=== PATIENT | female | born 1995 | race African-American/Black ===

== ENCOUNTER 2017-10-31 23:27 | Emergency (ER) | payer SELFPAY ==
[2017-11-01] MEDS ORDERED: Adacel (T-DAP) 0.5 ML VIAL ONE (00:17)
== END 2017-11-01 00:34 | disposition home or self-care (01) ==
LOC: ERS 23:27
DX: S01.412A Laceration without foreign body of left cheek and temporomandibular area, initial encounter (principal); F17.210 Nicotine dependence, cigarettes, uncomplicated; W01.198A Fall on same level from slipping, tripping and stumbling with subsequent striking against other object, initial encounter
CPT/HCPCS: 12011; 90471; 90715

== ENCOUNTER 2017-11-09 19:05 | Emergency (ER) | payer SELFPAY | END 2017-11-09 19:48 | disposition home or self-care (01) | LOC: ERS 19:05 | DX: S01.412D Laceration without foreign body of left cheek and temporomandibular area, subsequent encounter (principal); F17.210 Nicotine dependence, cigarettes, uncomplicated; Z71.6 Tobacco abuse counseling; W01.198D Fall on same level from slipping, tripping and stumbling with subsequent striking against other object, subsequent encounter | CPT/HCPCS: 99406 ==

== ENCOUNTER 2017-12-18 07:29 | Emergency (ER) | payer SELFPAY ==
[2017-12-18] MEDS ORDERED: Ibuprofen 800 MG TAB ONE (07:59)
--- NOTE | 2017-12-18 09:00 | RAD ---
TWO VIEWS RIGHT FOREARM: HISTORY: Pain. FINDINGS: AP and lateral views right forearm are obtained. Two views right forearm demonstrate no evidence of right forearm fractures, subluxations, or bony les ions. IMPRESSION: Normal 2 views right forearm. POS: [facility]
== END 2017-12-18 08:54 | disposition home or self-care (01) ==
LOC: ERS 07:29
DX: S50.11XA Contusion of right forearm, initial encounter (principal); K08.89 Other specified disorders of teeth and supporting structures; K00.6 Disturbances in tooth eruption; F17.210 Nicotine dependence, cigarettes, uncomplicated; W23.0XXA Caught, crushed, jammed, or pinched between moving objects, initial encounter

== ENCOUNTER 2018-11-03 22:26 | Emergency (ER) | payer SELFPAY ==
--- NOTE | 2018-11-03 23:03 | RAD ---
AP VIEW CHEST: 11/03/18 HISTORY: Chest pain. AP view chest obtained on 11/03/18. AP view chest demonstrates the lungs to be well aerated. No evidence of active intrathoracic disease seen. No evidence of effusions, pneumonia, or pneumothorax seen. IMPRESSION: Unremarkable AP view chest. POS: [facility]
[2018-11-03 23:10] LABS: Bilirubin Negative (Negative); Blood, Urine Negative (Negative); Clarity Clear (Clear); Glucose, Urine (Dipstick) Negative (Negative); Leukocyte Negative (Negative); Nitrite Negative (Negative); Protein, Urine (Dipstick) Negative (Neg-Trace); Urobilinogen 0.2 mg/dL (0.2-1.0)
[2018-11-03 23:14] LABS: Pregnancy Test - Urine (BHCG) Negative (Negative); Pregu Control Background? CLEAR/WHITE (CLR/WHITE); Pregu Control Bar Appear? YES (CONTROL BAR)
[2018-11-03 23:48] LABS: #Basophils 0.1 thou/uL (0.0-0.2); #Eosinphils 0.3 thou/uL (0.0-0.7); #Lymphocytes 2.3 thou/uL (1.20-3.40); #Monocytes 0.4 thou/uL (0.11-0.59); #Neutrophils 3.7 thou/uL (1.40-6.50); %Basophils 2.2 % (0.0-1.0); %Eosinophils 3.8 % (0.0-10.0); %Lymphocytes 34.3 % (21.0-51.0); %Monocytes 5.9 % (0.0-10.0); Hemoglobin 11.7 g/dL (12.0-16.0); Mean Corpuscular Hemoglobin 27.8 pg (27.0-31.0); Mean Corpuscular Volume 86.8 fL (78.0-98.0); Mean Platelet Volume 9.2 fL (7.4-10.4); Platelet Count 244 thou/uL (130-400); Red Blood Cell (RBC) Count 4.22 mill/uL (4.20-5.40); White Blood Cell (WBC) Count 6.8 thou/uL (4.8-10.8)
[2018-11-03 23:56] LABS: ALT (SGPT) 20 U/L (8-55); AST (SGOT) 27 U/L (5-34); Albumin 4.4 g/dL (3.5-5.0); Alkaline Phosphatase 86 U/L (40-150); Anion Gap 14 mmol/L (10-20); BUN (Urea Nitrogen) 13 mg/dL (7.0-18.7); Bilirubin, Total 0.2 mg/dL (0.2-1.2); Calc. Creatinine Clearance 0 mL/min (70-130); Calcium 9.8 mg/dL (7.8-10.44); Carbon Dioxide 23 mmol/L (22-29); Chloride 108 mmol/L (98-107); Estimated GFR-MDRD 87; Globulin 4.1 g/dL (2.4-3.5); Glucose 87 mg/dL (70-105); Potassium 4.2 mmol/L (3.5-5.1); Protein, Total 8.5 g/dL (6.0-8.3); Sodium 141 mmol/L (136-145)
[2018-11-04] MEDS ORDERED: Aspirin Chewable 81 MG TAB ONE (00:17)
== END 2018-11-04 00:25 | disposition home or self-care (01) ==
LOC: SCSER 22:26
DX: R07.89 Other chest pain (principal); M54.5 Low back pain
CPT/HCPCS: 71045; 80053; 81003; 81025; 83880; 84484; 85025; 93005